=== PATIENT | female | born 1990 | race Two or more races ===

== ENCOUNTER 2023-10-03 18:55 | Emergency (ER) | payer SELFPAY ==
[~2023-10-03] VITALS: Ht 162.6 cm; Wt 68.1 kg
[2023-10-03] MEDS ORDERED: ONDANSETRON ODT 4 MG TAB PO ONE (19:45)
[2023-10-03] MEDS ORDERED: SODIUM CHLORIDE 0.9% 1,000 ML IV ONE (19:45)
[2023-10-03] MEDS ORDERED: ALPRAZolam 0.5 MG TAB PO ONE (19:45)
[2023-10-03 20:49] VITALS: PULSE 87; RESP 20; TEMP 98.6; O2SAT 99
[2023-10-03 22:39] LABS: Amphetamine Screen, Urine Neg (NEGATIVE); Barbiturate Scree,Urine Neg (NEGATIVE); Benzodiazephine Screen, Urine Neg (NEGATIVE); Cocaine Screen, Urine Neg (NEGATIVE); Opiate Scree,Urine Neg (NEGATIVE)
[2023-10-03 22:40] LABS: Cannabinoid Screen, Urine Pos (NEGATIVE); Phencyclidine Screen, Urine Neg (NEGATIVE)
[2023-10-03 22:42] LABS: Urine Bacteria NONE SEEN /hpf (None Seen); Urine Blood 3+ /uL (Negative); Urine Clarity Clear (Clear); Urine Color Colorless (Yellow); Urine Protein, UAD Negative (Negative); Urine Specific Gravity 1.013 (1.001-1.035); Urine Urobilinogen Normal (Negative); Urine WBC 4 /hpf (0 - 5); Urine pH 6.5 (5.0-8.0)
[2023-10-03 23:26] VITALS: BP 109/65; PULSE 72; RESP 20; O2SAT 98
== END 2023-10-03 23:27 | disposition home or self-care (01) ==
LOC: ER 18:55
DX: T40.711A Poisoning by cannabis, accidental (unintentional), initial encounter (principal); Y92.89 Other specified places as the place of occurrence of the external cause
CPT/HCPCS: 80307; 81001; 96360; 99283; J7030; Q0162